=== PATIENT | male | born 1990 | race Native Hawaiian/Other Pacific Islander ===

== ENCOUNTER → 2018-12-31 | Outpatient (CLI) | payer BC ==
--- NOTE | 2018-12-31 20:45 | CONS ---
CONSULTATION REASON FOR CONSULTATION: Sleep apnea. This is a 28-year-old male patient coming in for increased fatigue, tiredness and sleepiness. The patient reports snoring and gasping for air and quits breathing at night during sleep. 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 He works at [employer] in [place]. He commutes back and forth to [place]. He arrives home around 4:30 and he goes to bed around 6 a.m. in the morning on workdays and he gets out of bed around 2 p.m. He feels non-refreshed and his sleep is quite restless at nighttime. On days off he goes to bed around 1 a.m. and he gets up at 1 p.m. the next day. He does not fall asleep while driving. He has never been involved in a motor vehicle accident because of feeling drowsy or sleepy. His weight is up over the years and he drinks alcohol socially, especially on the days when he is off. He has a history of chronic bipolar disorder which is currently well treated with a combination of Prozac and lamotrigine. His current Warrior score is 7. PAST MEDICAL HISTORY: Obesity and bipolar disorder. PAST SURGICAL HISTORY: None. DRUG ALLERGIES: NOT KNOWN. OUTPATIENT MEDICATION: Outpatient medication includes Prozac 40 mg p.o. daily and lamotrigine 100 mg twice a day. SOCIAL HISTORY: The patient is a smoker and drinks alcohol socially. Smokes marijuana. FAMILY HISTORY: Negative for sleep apnea. REVIEW OF SYSTEMS: Fourteen-point review of systems was done. Positive findings were all mentioned above in the history of present illness. He denies having any dreams at night. No sleepwalking. Denies waking up panicky or anxious or palpitations or any having any heartburn or shortness of breath or chest pain. PHYSICAL EXAMINATION: VITAL SIGNS: BP is 104/74, pulse 65, respirations 18, temperature 98.0, saturation 98% on room air. Height is 5 feet 10 inches, weight 242. Warrior score is 7. Neck size 18- 1/2 inches. BMI 34.7. GENERAL APPEARANCE: Calm, comfortable. HEAD: Atraumatic, normocephalic. NECK: Supple. No JVD. No goiter or neck masses. He has tonsillar enlargement and Mallampati class III to IV. LUNGS: Clear to auscultation. HEART: Heart sounds are regular rate and rhythm. Normal S1, S2. No S3, S4. No murmurs. ABDOMEN: Soft, nontender. No organomegaly. EXTREMITIES: No edema. No cyanosis or clubbing. NEUROLOGIC: Alert and oriented x3. No focal neurological deficits. PSYCHIATRIC: Negative for anxiety or depression. IMPRESSION: 1. Hypersomnia, currently under investigation, with increased likelihood of obstructive sleep apnea. Warrior Score is 7. 2. Loud snoring. 3. Mallampati class IV with some mild tonsillar enlargement. 4. Bipolar disorder, currently on a combination of Prozac and lamotrigine. PLAN: 1. Encourage weight loss. 2. Sleep on the side. 3. Implement good sleep hygiene measures. 4. Avoid driving, especially when feeling drowsy or sleepy. 5. Home sleep study to rule out the possibility of obstructive sleep apnea and treat accordingly. MMODL / IJN: [id number] /
== END ==
LOC: SLEEP 15:23
PROVIDERS: ATTEND Internal Medicine Critical Care Medicine
DX: G47.10 Hypersomnia, unspecified (principal); F31.9 Bipolar disorder, unspecified; F17.290 Nicotine dependence, other tobacco product, uncomplicated; Z79.899 Other long term (current) drug therapy
CPT/HCPCS: 99211

== ENCOUNTER → 2019-08-12 | Outpatient (CLI) | payer BC ==
--- NOTE | 2019-08-12 17:16 | PN ---
PROGRESS NOTE This patient was diagnosed having symptomatic obstructive sleep apnea, AHI of 14.6, worse in supine body position. The patient was given an APAP, minimum pressure of 5 and a maximum pressure of 15. The patient is coming in for a compliancy check. He has been using the treatment for the past 6 months. Based on a 90-day compliance, he is averaging around 7.8 hours of CPAP use per night and his CPAP use for more than 4 hours is 100%. His average pressure is 10.7. His leak is excessive, on the order of 82 L/minute. He is using the AirFit F30i full-face mask. His AHI is down to 9.7 without any central events. I think the residual obstructive events that we are seeing on the machine is related to his increased leaks. In terms of his weight, he has maintained his own weight. He has lost a few pounds. He is back to work. He feels significantly improved, much more awake and lucid and interactive and alert during the day. No other new complaints otherwise for now. REVIEW OF SYSTEMS: Fourteen-point review of system was done. Positive findings are all mentioned in the history of present illness. PHYSICAL EXAMINATION: BP is 149/81, pulse 76, respirations 16. Weight is 236, temperature 98.5. Saturation 96% on room air. GENERAL APPEARANCE: Calm, comfortable. HEAD: Atraumatic, normocephalic. NECK: Supple. No JVD. No goiter or neck masses. LUNGS: Clear to auscultation. HEART: Heart sounds are regular rate and rhythm. Normal S1, S2. No S3, S4. No murmurs. ABDOMEN: Soft, nontender. No organomegaly. EXTREMITIES: No edema. No cyanosis or clubbing. NEUROLOGIC: Awake and alert. There is no focal neurological deficit. IMPRESSION: 1. Symptomatic obstructive sleep apnea with an apnea/hypopnea index of 14.6, worse in the supine body position. The patient is extremely compliant and he is benefitting from his APAP treatment. 2. Loud snoring, recovered. 3. Increased leak around the mask. 4. Bipolar disorder. PLAN: 1. I educated the patient on appropriate use of the mask. The leak was related to the malpositioning of the mask on his face and inappropriate strengthening of the head gear. 2. We will monitor the patient's apnea-hypopnea index while in treatment, and I expect a drop in the AHI while improving the leaks. 3. Encourage weight loss. 4. Continue using the CPAP machine. The patient is extremely compliant. 5. See me back in the office in 6 months' time for re-evaluation. JAY / EDEL: [id number] /
== END | disposition home or self-care (01) ==
LOC: SLEEP 15:07
PROVIDERS: ATTEND Internal Medicine Critical Care Medicine
DX: G47.33 Obstructive sleep apnea (adult) (pediatric) (principal); F31.9 Bipolar disorder, unspecified

== ENCOUNTER 2023-01-30 16:08 | Emergency (ER) | payer BC ==
[2023-01-30] MEDS ORDERED: KETOROLAC 15 MG/ML 1 ML VIAL IM STA (17:08)
--- NOTE | 2023-01-30 17:58 | ED ---
General Adult HPI - General Chief complaint: Recheck/Abnormal Lab/Rx Stated complaint: [id number] Time Seen by Provider: 01/30/23 16:59 Source: patient Mode of arrival: ambulatory Limitations: no limitations - History of Present Illness Initial comments: This 32-year-old male presents with complaint of some generalized aches and pains. He states that it is worse in his mid thoracic spine at midline. He states that this is been present over the last week. He's had some nausea and occasional vomiting. He also has had some chills. He's had some moderate coughing at times as well. He states that he stop utilizing marijuana, alcohol and nicotine approximately one week ago. He apparently was utilizing heavy marijuana it only very sporadic alcohol. He is unsure if it could be related to his cessation of these substances. He denies any injuries. No other complaints or modifying factors. - Related Data Previous Rx's Medication Instructions Recorded Albuterol Sulfate [Albuterol 2 puff PO Q4H PRN #8.5 gm 01/30/23 Sulfate Hfa] Levofloxacin [Levaquin] 750 mg PO DAILY 7 Days #7 tab 01/30/23 Allergies Allergy/AdvReac Type Severity Reaction Status Date / Time No Known Allergies Allergy Verified 01/30/23 16:52 Review of Systems ROS Statement: Those systems with pertinent positive or pertinent negative responses have been documented in the HPI. ROS Other: All systems not noted in ROS Statement are negative. Past Medical History Past Medical History: Asthma History of Any Multi-Drug Resistant Organisms: None Reported Past Surgical History: No Surgical Hx Reported Past Psychological History: No Psychological Hx Reported Smoking Status: Never smoker Past Alcohol Use History: None Reported Past Drug Use History: None Reported General Exam - General Exam Comments Initial Comments: GENERAL: The patient is well nourished and well hydrated. VITAL SIGNS: Heart rate, blood pressure, respiratory rate reviewed as recorded in nurse's notes. EYES: Pupils are round and reactive. Extraocular movements are intact. No conjunctival / lid redness or swelling. ENT: No external evidence of injury, swelling, or ecchymosis. Airway is patent. Throat is clear. NECK: Nontender. No swelling or evidence of injury. No subcutaneous emphysema. Trachea is midline. No thyroid mass. HEART: Regular rate and rhythm. Good peripheral pulses. LUNGS/CHEST: Breath sounds clear and equal bilaterally. No rales, rhonchi, or wheezes. No ecchymosis, subcutaneous emphysema, or tenderness. ABDOMEN: Abdomen soft without tenderness. No palpable masses or organomegaly. No peritoneal signs. No abdominal wall swelling or ecchymosis. EXTREMITIES: No extremity tenderness. Normal muscle tone and function. There is some tenderness noted in the mid thoracic spine. This is primarily over the vertebrae of approximately T7 or T8. NEUROLOGIC: Sensation is grossly intact. Cranial nerve exam reveals face is symmetrical, tongue is midline, speech is clear. SKIN: No abrasions or ecchymosis is noted. No induration or masses noted. PSYCHIATRIC: Alert and oriented. Appropriate behavior and judgment. Limitations: no limitations Course Vital Signs 01/30/23 01/30/23 01/30/23 16:46 19:46 20:23 Temperature 99.7 F H 98 F Pulse Rate 77 72 79 Respiratory 18 18 16 Rate Blood Pressure 147/81 131/72 143/82 O2 Sat by Pulse 98 97 97 Oximetry Medical Decision Making - Medical Decision Making The patient was seen and examined. All diagnostics were reviewed. Toradol is given IM. The patient had viral studies done and these are negative. Chest x- ray does show a left lower lobe pneumonia per my interpretation and radiologist interpretation. It is felt as though symptomatology is likely related to the pneumonia. Antibiotics and albuterol are prescribed. Close follow-up with primary care as recommended. Mucinex DM or similar is recommended. Tylenol and/or Motrin as recommended. Was pt. sent in by a medical professional or institution (, PA, PERSONAL LINES SALES REP, urgent care, hospital, or custodial...) When possible be specific @ -[No] Did you speak to anyone other than the patient for history (EMS, parent, family, police, friend...)? What history was obtained from this source @ -[No] Did you review nursing and triage notes (agree or disagree)? Why? @ -[I reviewed and agree with nursing and triage notes] Were old charts reviewed (outside hosp., previous admission, EMS record, old EKG, old radiological studies, urgent care reports/EKG's, custodial records)? Report findings @ -[No old charts were reviewed] Differential Diagnosis (chest pain, altered mental status, abdominal pain women, abdominal pain men, vaginal bleeding, weakness, fever, dyspnea, syncope, headache, dizziness, GI bleed, back pain, seizure, CVA, palpatations, mental health, musculoskeletal)? @ -Pneumonia, upper respiratory infection, viral infection EKG interpreted by me (3pts min.). @ -Not done X-rays interpreted by me (1pt min.). @ -As above CT interpreted by me (1pt min.). @ -[None done] U/S interpreted by me (1pt. min.). @ -[None done] What testing was considered but not performed or refused? (CT, X-rays, U/S, labs)? Why? @ -[None] What meds were considered but not given or refused? Why? @ -[None] Did you discuss the management of the patient with other professionals (professionals i.e. , PA, PERSONAL [employer]ES SALES REP, lab, RT, psych nurse, 7th grade social studies teacher, medical office coordinator, teacher, aviation tactical readiness officer, case assembler)? Give summary @ -[No] Was smoking cessation discussed for >3mins.? @ -[No] Was critical care preformed (if so, how long)? @ -[No] Were there social determinants of health that impacted care today? How? (Homelessness, low income, unemployed, alcoholism, drug addiction, transportation, low edu. Level, literacy, decrease access to med. care, senior care, rehab)? @ -[No] Was there de-escalation of care discussed even if they declined (Discuss DNR or withdrawal of care, Hospice)? DNR status @ -[No] What co-morbidities impacted this encounter? (DM, HTN, Smoking, COPD, CAD, Cancer, CVA, ARF, Chemo, Hep., AIDS, mental health diagnosis, sleep apnea, morbid obesity)? @ -[None] Was patient admitted / discharged? Hospital course, mention meds given and route, prescriptions, significant lab abnormalities, going to OR and other pertinent info. @ -Discharge, see above Undiagnosed new problem with uncertain prognosis? @ -[No] Drug Therapy requiring intensive monitoring for toxicity (Heparin, Nitro, Insulin, Cardizem)? @ -[No] Were any procedures done? @ -[No] Diagnosis/symptom? @ -Pneumonia, cough Acute, or Chronic, or Acute on Chronic? @ -Acute Uncomplicated (without systemic symptoms) or Complicated (systemic symptoms)? @ -Uncomplicated Side effects of treatment? @ -[No] Exacerbation, Progression, or Severe Exacerbation? @ -[No] Poses a threat to life or bodily function? How? (Chest pain, USA, MS, pneumonia, PE, COPD, DKA, ARF, appy, cholecystitis, CVA, Diverticulitis, Homicidal, Suicidal, threat to staff... and all critical care pts) @ -[No] - Lab Data Lab Results 01/30/23 Range/Units 17:37 Influenza Type A (PCR) Not Detected (Not Detectd) Influenza Type B (PCR) Not Detected (Not Detectd) RSV (PCR) Not Detected (Not Detectd) SARS-CoV-2 (PCR) Not Detected (Not Detectd) Disposition Clinical Impression: Myalgia, Back pain, Cough, Nausea, Pneumonia Disposition: HOME SELF-CARE Condition: Good Instructions (If sedation given, give patient instructions): Bacterial Pneumonia (ED) Additional Instructions: Please use Tylenol and/or Motrin as needed for any pain or fever. Please use Mucinex DM or similar as needed for cough and congestion. Prescriptions: Albuterol Sulfate [Albuterol Sulfate Hfa] 2 puff PO Q4H PRN #8.5 gm PRN Reason: Cough Levofloxacin [Levaquin] 750 mg PO DAILY 7 Days #7 tab Is patient prescribed a controlled substance at d/c from ED?: No Referrals: Nonstaff,Physician [Primary Care Provider] - 1-2 days Time of Disposition: 20:15
--- NOTE | 2023-01-30 18:38 | XR ---
EXAMINATION TYPE: XR chest 2V DATE OF EXAM: 01/30/2023 6:32 PM CLINICAL INDICATION:Male, 32 years old with history of possible infiltrate; [facility] COMPARISON: Chest radiographs from 01/30/2023e TECHNIQUE: XR chest 2V Frontal and lateral views of the chest. FINDINGS: Lungs/Pleura: Left lower lung airspace opacity. There is flattening of the diaphragm with increased l ucency of the lungs. No evidence of pneumothorax, or pleural effusion. Pulmonary vascularity: Unremarkable. Heart/mediastinum: Cardiomediastinal silhouette is unremarkable. Musculoskeletal: No acute osseous pathology. IMPRESSION: 1. Left lower lung airspace opacities correlate for pneumonia. 2. COPD changes.
--- NOTE | 2023-01-30 18:39 | XR ---
EXAMINATION TYPE: XR thoracic spine 2V DATE OF EXAM: 01/30/2023 6:32 PM CLINICAL INDICATION:Male, 32 years old with history of pain; COMPARISON: None TECHNIQUE: XR thoracic spine 2V views of the thoracic spine in Frontal and lateral projections. FINDINGS: No evidence of acute fracture. There is scattered multilevel disk space narrowing without loss of ve rtebral body height. There is normal alignment of the thoracic vertebral bodies. Scattered osteophyte formation along the anterior and lateral aspects of the vertebral bodies. Neural foramen are patent given limitations of this exam. Spinal canal appears patent. IMPRESSION: 1. No acute osseous pathology. 2. Mild multilevel degeneration changes throughout the spine.
[2023-01-30 20:37] VITALS: BP 143/82; PULSE 79; RESP 16; TEMP 98
== END 2023-01-30 20:24 | disposition home or self-care (01) ==
LOC: EC 16:08
DX: J18.1 Lobar pneumonia, unspecified organism (principal); M79.10 Myalgia, unspecified site; M54.6 Pain in thoracic spine; J45.909 Unspecified asthma, uncomplicated; Z20.822 Contact with and (suspected) exposure to COVID-19
CPT/HCPCS: 87636; 72070; 71046; 99285; 96372; J1885